=== PATIENT | female | born 1950 | race Caucasian/White ===

== ENCOUNTER 2019-02-24 20:49 | Emergency (ER) | payer OTHER, MEDICARE ==
[2019-02-24] MEDS ORDERED: HYDROCODONE/ACETAMINOPHEN 5-325 MG TABLET PO ONE (22:19)
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
[2019-02-24 23:29] VITALS: BP 174/76
[2019-02-24 23:37] LABS: ABSOLUTE BASOPHILS # (AUTO) 0.1 10^3/uL (0.0-0.2); ABSOLUTE EOSINOPHILS # (AUTO) 0.1 10^3/uL (0.0-0.6); ABSOLUTE LYMPHOCYTES (AUTO) 1.4 10^3/uL (0.5-4.7); ABSOLUTE MONOCYTES (AUTO) 1.1 10^3/uL (0.1-1.4); ABSOLUTE NEUT (AUTO) 10.3 10^3/uL (1.7-8.2); BASOPHILS % (AUTO) 0.7 % (0-2); EOSINOPHILS % (AUTO) 0.5 % (0-6); HEMATOCRIT 41.3 % (36.0-47.0); LYMPHOCYTES % (AUTO) 10.9 % (13-45); MEAN CORPUSCULAR HEMOGLOBIN 31.4 pg (27.0-33.4); MEAN CORPUSCULAR HGB CONC 33.9 g/dL (32.0-36.0); MEAN CORPUSCULAR VOLUME 93 fl (80-97); MONOCYTES % (AUTO) 8.5 % (3-13); PLATELET COUNT 198 10^3/uL (150-450); RED BLOOD COUNT 4.46 10^6/uL (3.72-5.28); RED CELL DISTRIBUTION WIDTH 14.7 % (11.5-14.0); SEGMENTED NEUTROPHILS % (AUTO) 79.4 % (42-78); TOTAL CELLS COUNTED % (AUTO) 100 %
--- NOTE | 2019-02-24 23:40 | EKG REPORT ---
SEVERITY:- ABNORMAL ECG - SINUS RHYTHM LEFT ATRIAL ABNORMALITY RBBB AND LPFB : Confirmed by: Yaron Alaniz MD 24-Feb-2019 23:39:35
[2019-02-24 23:51] LABS: ALBUMIN 4.4 g/dL (3.5-5.0); ALKALINE PHOSPHATASE 90 U/L (38-126); ANION GAP 11 (5-19); ASPARTATE AMINO TRANSFERASE 38 U/L (14-36); BILIRUBIN,DIRECT 0.3 mg/dL (0.0-0.4); BILIRUBIN,TOTAL 0.7 mg/dL (0.2-1.3); BLOOD UREA NITROGEN 14 mg/dL (7-20); CALCIUM 9.9 mg/dL (8.4-10.2); CARBON DIOXIDE 24 mmol/L (22-30); CHLORIDE 108 mmol/L (98-107); GLUCOSE 127 mg/dL (75-110); POTASSIUM 3.4 mmol/L (3.6-5.0); TOTAL PROTEIN 7.2 g/dL (6.3-8.2)
[2019-02-25] MEDS ORDERED: LIDOCAINE 5% (700 MG) TRANSDERMAL ADH..PATCH TP ONE (01:50)
[2019-02-25] MEDS ORDERED: OXYCODONE HCL IR 5 MG TABLET PO ONE (01:50)
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
[2019-02-25] MEDS ORDERED: DIPH/PERTUSS(ACELL)/TETANUS VAC/PF 0.5 ML SYR (>=10YO) IM ONE (02:02)
[2019-02-25] MEDS ORDERED: HYDROCODONE/ACETAMINOPHEN 5-325 MG (6 TAB/ER DISP) PO PRN (02:29)
== END 2019-02-25 02:35 | disposition home or self-care (01) ==
LOC: ER 20:49
DX: S52.122A Displaced fracture of head of left radius, initial encounter for closed fracture (principal); S62.115A Nondisplaced fracture of triquetrum [cuneiform] bone, left wrist, initial encounter for closed fracture; S20.219A Contusion of unspecified front wall of thorax, initial encounter; S40.012A Contusion of left shoulder, initial encounter; S10.93XA Contusion of unspecified part of neck, initial encounter; S80.212A Abrasion, left knee, initial encounter; M25.462 Effusion, left knee; M54.2 Cervicalgia; M25.552 Pain in left hip; M79.602 Pain in left arm; V59.40XA Driver of pick-up truck or van injured in collision with unspecified motor vehicles in traffic accident, initial encounter; I45.2 Bifascicular block; I10 Essential (primary) hypertension; Z87.891 Personal history of nicotine dependence; Z88.0 Allergy status to penicillin
CPT/HCPCS: 36415; 71046; 72070; 72125; 80053; 84484; 85025; 90471; 90715; 93005; 93010; 99284

== ENCOUNTER → 2020-01-27 | Outpatient (CLI) | payer MEDICARE, OTHER ==
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
--- OUTSIDE RECORDS SUMMARY | 2020-01-28 15:14 | XMS REPORT ---
:1950 [facility] [address] [place] [address] Care Team Providers Name Role Phone MD Presley Hu Attending Clinician Unavailable MD Presley Hu Attending Clinician Unavailable MD Samira Mcnamara Attending Clinician Unavailable MD Samira Mcnamara Attending Clinician Unavailable Allergies, Adverse Reactions, Alerts Allergy Name Allergy Status Severity Reaction(s) Onset Inactive Treat ing Comments Type Date Date Clinician penicillin Drug Active Moderate Eruption allergy (morphologic abnormality) Medications Ordered Filled Start Stop Current Ordering Indication Dosage Frequency Signature Comments Components Medication Medication Date Date Medication? Clinician (SIG) Name Name gabapentin 2019-0 Yes 300mg 300 mg = 1 300 mg oral 8-18 cap(s), capsule 09:47: PO, qAM 00 levothyroxi 2019-0 Yes 100ug 100 mcg = ne 100 mcg 611 1 tab(s), (0.1 mg) 09:26: PO, Daily, oral tablet 00 # 90 tab(s), 0 Refill(s) Oyster 2020-0 Yes 11 1 tab(s), Shell 6-11 PO, BID, # Calcium 09:24: 120 with 00 tab(s), 0 Vitamin D Refill(s) 500 mg-200 intl units (5 mcg) oral tablet rosuvastati 2019-0 Yes 40mg 40 mg = 1 n 40 mg 6-11 tab(s), oral tablet 09:24: PO, Daily, 00 # 90 tab(s), 0 Refill(s) Cardizem CD 2020-0 Yes 120mg 120 mg = 1 120 mg/24 6-11 cap(s), hours oral 09:23: PO, Daily, capsule, 00 # 90 extended cap(s), 0 release Refill(s) pantoprazol 2020-0 Yes 80mg 80 mg = 2 e 40 mg 6-11 tab(s), oral 09:23: PO, BID, # delayed 00 120 release tab(s), 0 tablet Refill(s) telmisartan 2020-0 Yes 80mg 80 mg = 1 80 mg oral 6-11 tab(s), tablet 09:22: PO, Daily, 00 # 90 tab(s), 0 Refill(s) loratadine 2019-0 Yes 10mg 10 mg = 1 10 mg oral 6-11 tab(s), tablet 09:22: PO, Daily, 00 # 90 tab(s), 0 Refill(s) amLODIPine 2020-0 Yes 2.5mg 2.5 mg = 1 2.5 mg oral 6-11 tab(s), tablet 09:22: PO, Daily, 00 # 90 tab(s), 0 Refill(s) Problems This patient has no known problems. Procedures Procedure Date / Time Performed Performing Clinician Cj evans Anterior Cervical Discectomy and 2019-11-02 13:38:00 Fusion Level 2 IPO (NA)1 Computed tomography myelogram of 2019-08-26 00:00:00 cervical region APPENDECTOMY Bilateral carpal tunnel syndrome Bilateral guillotine tonsillectomy Breast lumpectomy Stapedectomy2 Results This patient has no known results. Assessments Condition Name Status Diagnosis Date Treating Clinici an Cervicalgia Active 0 Encounter for screening for other viral Active 0 diseases Low back pain Active 0 Radiculopathy, cervical region Active 0 Encounters Start End Encounter Admission Attending Care Care Encounter Date/Time Date/Time Type Type Clinicians Facility Department ID 2019-11-02 2019-11-02 Aaron Gentile [facility] [id number] 09:09:17 09:09:17 Aaron Hu 2019-10-29 2019-10-29 O Aaron Jaime [facility] [id number] 09:15:00 23:59:59 Aaron Hu 2019-10-20 2019-10-21 O Aarno Jaime [facility] [id number] 13:07:39 23:59:59 Aaron Hu 2019-08-26 2019-08-26 O Aaron Bowser [facility] [id number] 08:51:53 13:17:00 Aaron Mcnamara Payers Payer Name Policy Type Policy Number Effective Date Expiration D ate Social History Smoking Status Start Date Stop Date Heavy tobacco smoker (finding) 2019-11-02 11:48:08 2019-10-16 8 11:48:08 Social History Observation Description Sex Female Vital Signs Vital Name Observation Time Observation Value Comments Temperature Oral 2019-11-03 08:00:00 36.8 Mayela Peripheral Pulse Rate 2019-11-03 08:00:00 62 /min Respiratory Rate 2019-11-03 08:00:00 16 /min Systolic Blood Pressure 2019-11-03 08:00:00 152 mm[Hg] Diastolic Blood Pressure 2019-11-03 08:00:00 76 mm[Hg] Temperature Oral 2019-11-03 03:00:00 36.4 Mayela Peripheral Pulse Rate 2019-11-03 03:00:00 61 /min Respiratory Rate 2019-11-03 03:00:00 16 /min Systolic Blood Pressure 2019-11-03 03:00:00 155 mm[Hg] Diastolic Blood Pressure 2019-11-03 03:00:00 66 mm[Hg] Temperature Oral 2019-11-02 23:00:00 36.5 Mayela Peripheral Pulse Rate 2019-11-02 23:00:00 57 /min Respiratory Rate 2019-11-02 23:00:00 15 /min Systolic Blood Pressure 2019-11-02 23:00:00 124 mm[Hg] Diastolic Blood Pressure 2019-11-02 23:00:00 58 mm[Hg] Heart Rate Monitored 2019-11-02 17:15:00 55 /min Heart Rate Monitored 2019-11-02 17:00:00 51 /min Heart Rate Monitored 2019-11-02 16:45:00 59 /min Temperature Tympanic 2019-11-02 14:50:00 36 Mayela Temperature - Temporal Artery 2019-11-02 11:39:00 36.8 Mayela Apical Heart Rate 2019-11-02 11:39:00 53 /min Hospital Discharge Instructions Patient Nuhoqgnkj36/18/2020 15:29:49Anterior Cervical Diskectomy and FusionAnterior Cervical Diskectomy and FusionAnterior cervical diskectomy and fusion is a surgery to remove and replace an intervertebral disk. Intervertebral disks are plates of cartilage located between the bones of the spine. This surgery is done when an intervertebral disk in the neck puts pressure on the spine or on a nerve.Thesurgery is done through the front (anterior) part of the neck. During the surgery, the damaged disk is removed and replaced with a plastic implant, a bone from another part of the body (bone graft), orboth. Sometimes metal plates and screws (hardware) are also put in the neck to help keep the implantor bone graft in place and to allow the bones to grow together (fuse).Tell a health care provider about: Any allergies you have. All medicines you are taking, including vitamins, herbs, eye drops, creams, and uqug-fwr-ihwionh medicines. Any problems you or family members have had with anesthetic medicines. Any blood disorders you have. Any surgeries you have had. Any medical conditions you have or have had. Whether you are or may be .What are the risks?Generally, this is a safe procedure. However, problems may occur, including: Infection. Bleeding, which can sometimes require a blood transfusion. Injury to surrounding structures, including nerves. Leakage of fluid from the brain or spinal cord (cerebrospinal fluid). Blood clots. Temporary breathing difficulties.What happens before the procedure?MedicinesAsk your health care provider about: Changing or stopping your regular medicines. This is especially important if you are taking diabetes medicines or blood thinners. Taking medicines such as aspirin and ibuprofen. These medicines can thin your blood. Do not take these medicines unless your health care provider tells you to take them. Taking bfjj-cde-bdwvjvi medicines, vitamins, herbs, and supplements.Staying hydratedFollow instructions from your health care provider about hydration, which may include: Up to 2 hours before the procedure you may continue to drink clear liquids, such as water, clear fruit juice, black coffee, and plain tea.Eating and drinkingFollow instructions from your health care provider about eatingand drinking, which may include: 8 hours before the procedure stop eating heavy meals or foods, such as meat, fried foods, or fatty foods. 6 hours before the procedure stop eating light meals or foods, such as toast or cereal. 6 hours before the procedure stop drinking milk or drinks that contain milk. 2 hours before the procedure stop drinking clear liquids.General instructions Do not use any products that contain nicotine or tobacco for at least 4 weeks before the procedure. These products include cigarettes, e-cigarettes, and chewing tobacco. If you need help quitting, ask your health care provider. Ask your health care provider: How your surgery site will be marked. What steps will be taken to help prevent infection. These may include: Removing hair at the surgery site. Washing skin with a germ-killing soap. Receiving antibiotic medicine.What happens during the procedure? An IV will be inserted into one of your veins. You will be given one or more of the following: A medicine to help you relax (sedative). A medicine to make you fall asleep (general anesthetic). A breathing tube will be placed. Your neck will be cleaned with a germ-killing solution (antiseptic solution). Your surgeon will make an incision in the front of your neck. Your neck muscles will be spread apart. The damaged disk and any damaged bone willbe removed. The area where the disk was removed will be filled with a small plastic implant, a bone graft, or both. Hardware may be put in your neck. The incision will be closed with stitches ( sutures). Adhesive strips or skin glue may be placed across the incision. A bandage (dressing)will be applied over the incision.The procedure may vary among health care providers and hospitals.What happens after the procedure? Your blood pressure, heart rate, breathing rate, and blood oxygenlevel will be monitored until you leave the hospital or clinic. You will be monitored for any signs of complications from the procedure, such as: Too much bleeding from the incision site. A buildup of blood under your skin at the surgical site. Difficulty breathing. You may continue to receive antibiotics. You can start to eat as soon as you feel comfortable. You may be given a neck brace to wear. This brace limits your neck movement while your bones are fusing. Do not drive for 24 hours if you were given a sedative during your procedure.Summary Anterior cervical diskectomy and fusion is a surgery to remove and replace an intervertebral disk. The surgery is done through the front (anterior) part of the neck. Before the procedure, follow instructions from your health care provider about changing or stopping your medicines and about eating and drinking. During the procedure, the damaged disk and any damaged bone will be removed. After the procedure, you will bemonitored for any signs of complications from the procedure. You may be given a neck brace to wear. This brace limits your neck movement while your bones are fusing.This information is not intended to replace advice given to you by your health care provider. Make sure you discuss any questions you have with your health care provider.Document Released: 02/19/2010 Document Revised: 11/26/2018 Document Reviewed: 11/26/2018Lottie Interactive Patient Education ? 2019 [employer].11/02/2019 15:29:49Cervical FusionCervical FusionCervical fusion is a procedure that is done on bones in the neck (cervical spine) to relieve pressure on the spinal cord or one or more nerve roots.There are two types of cervical fusion: Posterior cervical fusion. This surgery is done through the back (posterior) of the neck. The goal of this procedure is to make two or more of the bones in the spinal column (vertebrae) grow together (fuse). This procedure is most commonly used to treat neck fractures and dislocations and to fix deformities in the curve of the neck. Anterior cervical fusion. This surgery is done through the front (anterior) part of the neck. This procedure is most commonly used to treat herniated cervical disk, degenerative cervical disease, and arthritis in the cervical spine. During this typeof surgery: The affected disk between the two vertebrae (intervertebral disk) is removed, as wellas any extra bone on the edges of the vertebrae (bone spurs). This takes pressure off of the nerves or spinal cord (decompression). The area where the disk was removed is filled with a bone material(graft) or artificial bone material (implant) and then it fuses over time.In either procedure, hardware such as rods, screws, metal plates, or cages may be inserted to stabilize the vertebrae while they heal.Tell a health care provider about: Any allergies you have. All medicines you are taking,including vitamins, herbs, eye drops, creams, and kjza-gkk-luomddi medicines. Any problems you orfamily members have had with anesthetic medicines. Any blood disorders you have. Any surgeriesyou have had. Any medical conditions you have. Whether you are or may be .What are the risks?Generally, this is a safe procedure. However, problems may occur, including: Infection. Bleeding. Allergic reactions to medicines or dyes. Damage to other structures or organs, such as nerves near the spine. Spinal fluid leakage. Blood clots. Trouble controlling urination or bowel movements. Vertebrae not fusing together completely (pseudoarthrosis). Temporary hoarseness of the voice. Difficulty swallowing.What happens before the procedure?Staying hydratedFollow instructions from your health care provider about hydration, which may include: Up to 2 hours before the procedure you may continue to drink clear liquids, such as water, clear fruit juice, black coffee, and plain tea.Eating and drinking restrictionsFollow instructions from your health care provider about eating and drinking, which may include: 8 hours before the procedure stop eating heavy meals or foods such as meat, fried foods, or fatty foods. 6 hours before the procedure stop eating light meals or foods, such as toast or cereal. 6 hours before the procedure stop drinking milk or drinks that contain milk. 2 hours before the procedure stop drinking clear liquids.Medicines Ask your health care provider about: Changing or stopping your regular medicines. This is especially important if you are taking diabetes medicines or blood thinners. Takingmedicines such as aspirin and ibuprofen. These medicines can thin your blood. Do not take these medicines before your procedure if your health care provider instructs you not to. You may be given antibiotic medicine to help prevent infection.General instructions Ask your health care provider howyour surgical site will be marked or identified. You will have blood and urine samples taken. You may have tests, such as: X-rays. CT scan. MRI. Plan to have someone take you home from the hospital or clinic. If you will be going home right after the procedure, plan to have someone with you for 24 hours.What happens during the procedure? To reduce your risk of infection: Your health care team will wash or sanitize their hands. Your skin will be washed with soap. Hairmay be removed from the surgical area. An IV tube will be inserted into one of your veins. Youwill be given one or more of the following: A medicine to help you relax (sedative). A medicine to make you fall asleep (general anesthetic). If you are having a posterior cervical fusion: An incision will be made in the back of your neck. Two or more vertebrae will be joined into one solid section of bone with a bone graft. If you are having an anterior cervical fusion: An incision will be made in the area where the fusion will be placed. This is?usually done at the front of your neck. Your neck muscles will be pushed aside. The affected disk and bone spurs will be removed (decompression). The area where the disk was removed will then be filled with bone graft or bone implants or both. Screws and rods or metal plates may be used to stabilize the vertebrae while they fuse. Your incision may be closed. A bandage (dressing) may be placed over your incision.The procedure may vary among health care providers and hospitals.What happens after the procedure? You will be given medicine to relieve pain as needed. You will continue to receive fluids and medicines through an IV tube. Your blood pressure, heart rate, breathing rate, and blood oxygen level will be monitored until the medicines you were given have worn off. You may be given a brace to wear while you heal. Do not drive until your health care provider approves. You may have to wear compression stockings. These stockings help to prevent blood clots and reduce swelling in your legs. You may be asked to do breathing exercises. This helps prevent a lung infection. You will be encouraged to stand up and walk as soon as you are able. You will be taught how to move correctly and how to stand and walk. You will be assisted to turn in bed frequently by moving your whole body without twisting your back (log rolling technique).This information is not intended to replace advice given to you by your health care provider. Make sure you discuss any questions you have with your healthcare provider.Document Released: 08/23/2002 Document Revised: 09/25/2016 Document Reviewed: 09/11/2016[employer]ier Interactive Patient Education ? 2019 [employer].11/02/2019 15:29:49Venous Thromboembolism PreventionVenous Thromboembolism PreventionVenous thromboembolism (VTE) is a condition in which a blood clot (thrombus) develops in the body. A thrombus usually occurs in a deep vein in the leg or thepelvis (DVT), but it can also occur in the arm. Sometimes, pieces of a thrombus can break off from its original place of development and travel through the bloodstream to other parts of the body. When that happens, the thrombus is called an embolus. An embolus that travels to one or both lungs is called a pulmonary embolism. An embolism can block the blood flow in the blood vessels of other organs aswell.VTE is a serious health condition that can cause disability or . It is very important to get help right away and to not ignore symptoms.How can a VTE be prevented? Exercise regularly. Takea brisk 30 minute walk every day. Staying active and moving around can help you to prevent blood clots. Avoid sitting or lying in bed for long periods of time without moving your legs. Change your position often, especially during long-distance travel (over 4 hours). If you are a woman who is over 35 years of age, avoid unnecessary use of medicines that contain estrogen. These include control pills and hormone replacement therapy. Do not smoke, especially if you take estrogen medicines. If you need help quitting, ask your health care provider. Eat plenty of fruits and vegetables. Ask your health care provider or dietitian if there are foods that you should avoid. Maintain a weight that is appropriate for your height. Ask your health care provider what weight is healthy for you. Wear loose-fitting clothing. Avoid constrictive or tight clothing around your legs or waist.Try not to bump or injure your legs. Avoid crossing your legs when you are sitting. Do not use pillows under your knees while lying down unless told by your health care provider. Wear support hose (compression stockings or MORGAN hose) as told by your health care provider. Compression stockings increase blood flow in your legs and can help prevent blood clots. Do not let them bunch up when you arewearing them.How can I prevent VTE when I travel?Long-distance travel (over 4 hours) can increase the risk of a VTE. To prevent VTE when traveling: Exercise your legs every hour by standing, stretching, and bending and straightening your legs. If you are traveling by airplane, train, or bus, walk up and down the aisle as often as possible to get your blood moving. If you are traveling by car, stopand get out of the car every hour to exercise your legs and stretch. Other types of exercise might include: Keeping your feet flat on the ground and raising your toes. Switching from tightening the muscles in your calves and thighs to relaxing those same muscles while you are sitting. Pointing and flexing your feet at the ankle joints while you are sitting. Stay well hydrated while traveling. Drink enough water to keep your urine clear or pale yellow. Avoid drinking alcohol during long travel.Generally, it is not recommended that you take medicines to prevent DVT during routine travel.How can VTE be prevented if I am hospitalized?A VTE may be prevented by taking medicines that are prescribed to prevent blood clots (anticoagulants). You can also help to prevent VTE while in the hospital by taking these actions: Get out of bed and walk. Ask your health care provider if this is safe for you to do. Request the use of a sequential compression device (SCD). This is a machine thatpumps air into compression sleeves that are wrapped around your legs. Request the use of compression stockings, which are tight, elastic stockings that apply pressure to the lower legs. Compression s tockings are sometimes used with SCDs.How can I prevent VTE after surgery?Understand that there is an increased risk for VTE for the first 46 weeks after surgery. During this time: Avoid long-distance travel (over 4 hours). If you must travel during this time, ask your health care provider about additional preventive actions that you can take. These might include exercising your arms and legs every hour while you travel. Avoid sitting or lying still for too long. If possible, get up and walk around one time every hour. Ask your health care provider when this is safe for you to do.Get help right away if: You have new or increased pain, swelling, or redness in an arm or leg. You have numbness or tingling in an arm or leg. You have shortness of breath while active or at rest. You have chest pain. You have a rapid or irregular heartbeat. You feel light-headed or dizzy. You cough up blood. You notice blood in your vomit, bowel movement, or urine.These symptoms may represent a serious problem that is an emergency. Do not wait to see if the symptoms will go away. Get medical help right away. Call your local emergency services (911 in the [place] Do not drive yourself to the hospital.This information is not intended to replace advice given to you by your health care provider. Make sure you discuss any questions you have with your health care provider.Document Released: 02/19/2010 Document Revised: 10/17/2017 Document Reviewed: 06/28/2015Lottie Interactive Patient Education ? 2019 [employer].11/02/2019 15:29:49Preventing Surgical Site Infections ([place]) (Latanya [place])PREVENTING SURGICAL SITE INFECTIONSWhat can you do?Hand HygieneWashing your hands or using an alcohol gel is the number one way to prevent infection.Always wash your hands or use an alcohol hand rub before you touch the surgical site. Make sure anyone else does the same before touching the surgi blair site.Caring for your surgical siteCare of your surgical site continues after you go home. Thereare some simple things that you can do to help prevent infection at your surgical site. Anyone who touches the surgical site, including yourself and healthcare providers, should wash hands, or use an alcohol hand rub, before and after touching the surgical site Cleanse the wound according to your doctors instructions. Do not remove the dressing unless your doctor has instructed you to do so. Avoid tub baths, soaking in water, or swimming until your surgeon tells you it is OK. Do not allow your pet to sit or lie on the surgical site. Make sure you are eating nutritiously. Stop tobacco use. Place clean linen where you will be sleeping. Keep the wound clean and dry.Report any redness or drainage to your surgeon immediately.ZbzgwtvuQzlz73/18/2020 15:29:49Preventing Constipation After SurgeryPreventing Constipation After SurgeryConstipation is a common problem after surgery. Many things can make constipation more likely after a surgery, including: Certain medicines,especially numbing medicines (anesthetics) and very strong pain medicines called opioids. Feelingstressed because of the surgery. Eating different foods than normal. Being less active.Symptoms of constipation include: Having fewer than three bowel movements a week. Straining to have a bowel movement. Having hard, dry, or zkrksc-rvqk-dbibii stools. Feeling full or bloated. Having pain in the lower abdomen. Not feeling relief after having a bowel movement.You can take stepsto help prevent constipation after surgery.Follow these instructions at home:Eating and drinking Eat foods that have a lot of fiber in them. These include fresh fruits and vegetables, whole grains, and beans. Limit foods that are high in fat and processed sugars, such as fried and sweet foods. These include cypriot fries, hamburgers, cookies, and candy. Take a fiber supplement as told by yourhealth care provider. If you are not taking a fiber supplement and you think you are not getting enough fiber from foods, talk to your health care provider about adding a fiber supplement to your diet. Drink enough fluid to keep your urine pale yellow. Drink clear fluids, especially water. Avoiddrinking alcohol, caffeine, and soda. These can make constipation worse.Activity After surgery, return to your normal activities slowly, or when your health care provider says it is okay. Start walking as soon as you can. Try to go a little farther each day. Once your health care provider appr oves, do some sort of regular exercise. This helps prevent constipation.Bowel movements Go to therestroom when you have the urge to go. Do not hold it in. Try drinking something hot to get a bowel movement started. Keep track of how often you use the restroom.Medicine Take xqya-otw-icuyftr and prescription medicines only as told by your health care provider. Talk to your health care provider about medicines that may help prevent constipation, particularly if you have a history of constipation. Your health care provider may suggest a stool softener, laxative, or fiber supplement. Do not take any medicines without talking to your health care provider first.Contact a health care provider if: You used stool softeners or laxatives and still have not had a bowel movement within 2448 hours after using them. You have not had a bowel movement in 3 days. You have a fever.Gethelp right away if: Your constipation lasts for more than 4 days or gets worse. You have bright red blood in your stool. You have pain in the abdomen or rectum. You have very bad cramping. You have thin, pencil-like stools. You have unexplained weight loss.Summary Constipation is a common problem after surgery. Many things can make constipation more likely after a surgery, including certain medicines, eating different foods than normal, and being less active. Symptoms of constipation include having fewer than three bowel movements a week, straining to have a bowel movement, pain in the lower abdomen, and feeling full or bloated. A diet rich in high-fiber foods, fluids, physical activity, and medicines, such as stool softeners and laxatives, can help prevent constipation. This information is not intended to replace advice given to you by your health care provider. Make sure you discuss any questions you have with your health care provider.Document Released: 06/28/2013 Document Revised: 06/02/2017 Document Reviewed: 06/02/2017[employer] Interactive Patient Education ? 2019 [employer].11/02/2019 15:29:49Post-Operavtive Discharge Instructions ([place]) (CUSTOM)Post-Operative Discharge InstructionsWHAT TO EXPECT AFTER ANESTHESIAAfter the procedure, it is typical to experience: Nausea and vomiting. Sore throat. Sleepiness. Dizziness. Weakness. Painat the IV site. Trouble concentrating.HOME CARE INSTRUCTIONSFor the first 24 hours after anesthesia: Have a responsible person with you. Do not care for small children independently. Do not drivea car. Do not operate hazardous machinery. Do not drink alcohol. Do not take medicine that has not been prescribed by your health care provider. Do not sign important papers or make important decisions.EATING AND DRINKING Follow any instructions from your health care provider about eating or drinking restrictions. When you feel hungry, start by eating small amounts of foods that aresoft and easy to digest (bland). Gradually return to your regular diet. Drink enough fluid to keep your urine a pale yellow. It is not recommended that you take pain medicine on an empty stomach. Nausea and vomiting are common after receiving anesthesia. If you vomit, rehydrate by drinking water, juice or clear broth.SEEK MEDICAL CARE IF: You have nausea and vomiting that continue for more than one day after anesthesia. You develop a rash. You have redness around your IV site that gets worse. You have a temperature greater that 101 degrees orally or 102 degrees rectally.SEEK IMMEDIATE MEDICAL CARE IF: You have difficulty breathing. You have chest pain. You are unable to pass urine. You have blood in your urine or stool, or you vomit blood. You have any allergic reactions.BLEEDING RISK AFTER SURGERYIt is normal to have some bleeding after surgery, but if you notice bleeding coming through your bandages: Have someone hold firm pressure on the surgical site and reinforce it with additional dressing. If you are bleeding from an extremity, elevate the extremity above the level of your heart.WHEN SHOULD YOU CALL FOR HELP? If your incision is still bleeding after 15 minutes, call your surgeon immediately. If your dressing is fully saturated in under an hour, or you are unable to stop the bleeding with firm pressure, call your surgeon immediately. If you cant get in touch with your doctor, go to Urgent Care or to the [facility].Call 911 anytime you think you may need emergency care.Make sure you follow your doctors instructions regarding dressing changes, bathing and surgical incision site care. Make sure you discuss any questions you have with your health care provider.PREVENTING SURGICAL SITE INFECTIONSWHAT IS A SURGICAL SITE INFECTION?A surgical site infection is an infection that occurs after surgery in the part of the body where the surgery took place. Most patients who have surgery do not develop an infection. However, infections develop in about 1 to 3 out of every 100 patients who have surgery.Some of the common symptoms of a surgical site infection are: Redness and pain around the area where you had surgery Drainage of cloudy fluid from your surgical wound Fever Swelling Itching BurningWHAT CAN YOU DO TO HELP PREVENT A SURGICAL SITE INFECTION?Hand HygieneWashing your hands or using an alcohol gel is the number one way to prevent infection.Always wash your hands or use an alcohol hand rub before you touch the surgical site. Make sure anyone else does the same beforetouching the surgical site.Caring for your surgical siteCare of your surgical site continues after you go home. There are some simple things that you can do to help prevent infection at your surgical site. Anyone who touches the surgical site, including yourself and healthcare providers, should wash hands, or use an alcohol hand rub, before and after touching the surgical site Cleanse the wound according to your doctors instructions. Do not remove the dressing unless your doctor has instructed you to do so. Avoid tub baths, soaking in water, or swimming until your surgeon tells you it is OK. Do not allow your pet to sit or lie on the surgical site. Make sure you are eating nu tritiously. Stop tobacco use. Place clean linen where you will be sleeping. Keep the wound clean and dry.Report any signs of infection to your surgeon immediately.Pain Relief Preoperatively and PostoperativelyIf you have questions, problems, or concerns about the pain that you may feel after surgery, let your health care provider know.?Patients have the right to assessment and management of pain. Severe pain after surgeryand the fear or anxiety associated with that painmay cause extreme discomfort that: Prevents sleep. Decreases the ability to breathe deeply and to cough. This can result in pneumonia or other upper airway infections. Causes the heart to beat more quickly and the blood pressure to be higher. Increases the risk for constipation and bloating. Decreases the ability of wounds to heal. May result in depression, increased anxiety, and feelings of helplessness.Relieving pain before surgery (preoperatively) is also important because it lessens pain that you have after surgery (postoperatively). Patients who receive pain relief both before and after surgery experience greater pain relief than those who receive pain relief only after surgery. Let your health care provider know if you are having uncontrolled pain.?This is very important.?Pain after surgery is more difficult to manage if it is severe, so receiving prompt and adequate treatment of acute pain is necessary. If you become constipated after taking pain medicine, drink more liquids if you can. Your health care provider may have you take a mild laxative.PAIN CONTROL METHODSYour health care providers follow policies and procedures about the management of your pain.?These guidelines should be explained to you before surgery.?Plans for pain control after surgery must be decided upon by you andyour health care provider and put into use with your full understanding and agreement.?Do not be afraid to ask questions about the care that you are receiving.Your health care providers will attempt to control your pain in various ways, and these methods may be used together (multimodal analgesia). Using this approach has many benefits for you, including being able to eat and move around.As-Needed Pain Control You may be given pain medicine through an IV tube or as a pill or liquid that you can swallow. Let your health care provider know when you are having pain, and he or she will give you the pain medicine that is ordered for you.Medicine That Numbs the Area (Local Anesthetic)You may be givenpain medicine: As an injection near the area of the pain (local infiltration). As an injectionnear the nerve that controls the sensation to a specific part of your body (peripheral nerve block). In your spine to block pain (spinal block).Opioids Moderate to moderately severe acute pain after surgery may respond to opioids.?Opioids are narcotic pain medicine. Opioids are often combined with non-narcotic medicines to improve pain relief, lower the risk of side effects, and reduce the chance of addiction. If you follow your health care provider's directions about taking opioids and youdo not have a history of substance abuse, your risk of becoming addicted is very small.?To prevent addiction, opioids are given for short periods of time in careful doses.Other Methods of Pain Control Steroids. Physical therapy. Heat and cold therapy. Compression, such as wrapping an elastic bandage around the area of the pain. Massage.This information is not intended to replace advicegiven to you by your health care provider. Make sure you discuss any questions you have with your health care provider.[employer] Interactive Patient Education ?2016 [employer]11/02/2019 15:29:49Pain M edicine Instructions, Yzjf-qz-CjdcFsck Medicine InstructionsYou may need pain medicine after an injury or illness. Two common types of pain medicine are: Opioid pain medicine. These may be called opioids. Non-opioid pain medicine. This includes NSAIDs.It is important to follow your doctor's instructions when you are taking pain medicine. Doing this can keep yourself and others safe.How can painmedicine affect me?Pain medicine may not make all of your pain go away. It should make you comfortable enough to: Move. Breathe. Do normal activities.Opioids can cause side effects, such as: Trouble pooping (constipation). Feeling sick to your stomach (nausea). Throwing up (vomiting). Feeling very sleepy. Confusion. Taking the medicine for nonmedical reasons even though taking it hurts your health and well-being (opioid use disorder). Trouble breathing (respiratory depression).Taking opioids for longer than 3 days raises your risk of these side effects.Taking opioids for a long time can affect how well you can do daily tasks. Taking them for a long time also puts you at risk for: Car crashes. Depression. Suicide. Heart attack. Taking too much of the medicine (overdose). This can lead to .What should I do to stay safe while taking pain medicine?Take your medicine as told Take pain medicine exactly as told by your doctor. Take it only when you need it. Write down the times when you take your pain medicine. Look at the times before you take your next dose. Take other txdh-zcs-dhonxmz or prescription medicines only as told by your doctor. If your pain medicine has acetaminophen in it, do not take any other acetaminophen while you aretaking this medicine. Too much can damage the liver. Get pain medicine prescriptions from only one doctor.Avoid certain activitiesWhile you are taking prescription pain medicine, and for 8 hours after your last dose: Do not drive. Do not use machinery. Do not use power tools. Do not sign legal documents. Do not drink alcohol. Do not take sleeping pills. Do not take care of children by yourself. Do not do any activities that involve climbing or being in high places. Do not go into any body of water unless there is an adult nearby who can watch you and help you if needed. This includes: Lakes. [place]. Oceans. Spas. Swimming pools.Keep others safe Storeyour medicine as told by your doctor. Keep it where children and pets cannot reach it. Do not share your pain medicine with anyone. Do not save any leftover pills. If you have leftover pills, youcan: Bring them to a take-back program. Bring them to a pharmacy that has a drug disposal conta iner. Throw them in the trash. Check the medicine label or package insert to see if it is safe tothrow it out. If it is safe, take the medicine out of the container. Mix it with something that makes it unusable, such as pet waste. Then put the medicine in the trash.General instructions Talk with your doctor about other ways to manage your pain. If you have trouble pooping: Drink enough fluid to keep your pee (urine) pale yellow. Use a poop (stool) softener as told by your doctor. Eat more fruits and vegetables. Keep all follow-up visits as told by your doctor. This is important.Contact a doctor if: Your medicine is not helping with your pain. You have a rash. You feel depressed.Get help right away if:Seek medical care right away if you are taking pain medicines and you (or people close to you) notice any of the following: Trouble breathing. Breathing that is shorter than normal. Breathing that is more shallow than normal. Confusion. Sleepiness. Tr ouble staying awake. Feeling sick to your stomach. Throwing up. Your skin or lips turning pale or bluish in color. Tongue swelling.If you ever feel like you may hurt yourself or others, or have thoughts about taking your own life, get help right away. Go to your nearest emergency department or call: Your local emergency services (911 in the [place] A suicide crisis helpline, such as the National Suicide Prevention Lifeline at . This is open 24 hours a day.Summary Take your pain medicine exactly as told by your doctor. Pain medicine can help lower your pain. It may also cause side effects. Talk with your doctor about other ways to manage your pain. Follow your doctor's instructions about how to take your pain medicine and keep others safe. Ask what activities you should avoid while taking pain medicine.This information is not intended to replace advice given to you by your health care provider. Make sure you discuss any questions you have with your health care provider.Document Released: 08/19/2008 Document Revised: 10/13/2017 Document Reviewed: 10/13/2017[employer] Interactive Patient Education ? 2020 [employer].11/02/2019 15:29:49[place] Patient Safety: A Guide to Preventing Falls at Home (CUSTOM)[facility] Patient InformationPatie nt Safety: A Guide to Preventing Falls at HomeThe [facility] Patient InformationOriginalDate: 10/03/05 Revised date: 11/06/10Patient Safety: A Guide to Preventing Falls At Home Why is it important to prevent falls?Falls and the complications associated with falls are one of the most serioushealth problems facing the elderly. Preventing a fall is important to maintaining an active and independent lifestyle.Who is at risk for falls?Anyone can fall. No one wants to fall. Falls can occur in any age group; at any time and at any place. A fall can be a very serious and life threatening event for any person age 64 or older.Why do people fall?An unsafe environment may cause falls. An illness or physical condition may affect your strength and balance, making you more likely to fall. Some environmental factors that may cause falls are: Wet floors Loose carpets, tiles and throw rugs Equipment in halls or walkways Poor lighting Waxed floors Poor fitting or inadequate footwear Inappropriate use of assistive devices, canes, walkers, andwheelchairs Any other object at the floor level that a person can trip or slip onWhat illnesses or conditions make you unsteady on your feet or at risk for injury due to fall?Illness or conditions that may make you unsteady on your feet are: Poor vision/hearing Poor gait/mobility Muscle weakness Incontinence Syncope (dizziness) Low blood pressureLow blood sugar Seizures Poor nutrition/dehydration Medication reactions At risk for bleeding At risk for fractures Advanced age (>80)Standard [place] Order Number - [id number] [facility] Patient InformationOriginal Date: 10/03/05 Revised date: 11/06/10Patient Safety: A Guide to Preventing Falls At Home What should I tell my doctor? See your doctor as prescribed. See your eye doctor yearly. Tell your doctor if you have fallen and describe the circumstancesofthefall(s). Tell your doctor if you use any walker aids, such as a cane or awalker. Tell your doctor about any vision problems and any other medicalproblems you may have. Tell you doctor if you have any side effects from yourmedications. Take good care of your feet.Let your doctor know if you are taking laxatives.How can I make home safe? When getting out of bed, sit on the side of the bed before standingup. Place grab bars securely mounted in bathrooms around toilets,bath tubs, and shower areas. Place hand rails on both sides of stairwells. Make sure your home is well lit. Use night-lights in the bedroom, bathroom, hallways andstairways. Remove throw rugs, or fasten them to the floor carpet tape. Tack down carpet edges. Remove loose tiles. Remove electrical cords from pathways.Be sure to tell your doctor about all medications you are taking.Adapted from: Preventing Falls: Instructions for Patients and Families; [facility], August 2000 A Patient's Guide to Preventing Falls, The [place] Geriatrics SocietyStandard [place] Order Number - [id number]/ 15:29:49Incision Care, Adult, Rofu-gc-GzyjKvnpzsvv Care, AdultAn incision is a cut that a doctor makes in your skin for surgery (for a procedure). Most times, thesecuts are closed after surgery. Your cut from surgery may be closed with stitches (sutures), merritt,skin glue, or skin tape (adhesive strips). You may need to return to your doctor to have stitches orstaples taken out. This may happen many days or many weeks after your surgery. The cut needs to be well cared for so it does not get infected.How to care for your cutCut care Follow instructions from your doctor about how to take care of your cut. Make sure you: Wash your hands with soap and water before you change your bandage (dressing). If you cannot use soap and water, use hand dental equipment technician. Change your bandage as told by your doctor. Leave stitches, skin glue, or skin tape in place. They may need to stay in place for 2 weeks or longer. If tape strips get loose and curl up, you may trim the loose edges. Do not remove tape strips completely unless your doctor says it is okay. Check your cut area every day for signs of infection. Check for: More redness, swelling, or pain. More fluid or blood. Warmth. Pus or a bad smell. Ask your doctor how to clean the cut. This may include: Using mild soap and water. Using a clean towel to pat the cut dry after you clean it. Putting a cream or ointment on the cut. Do this only as told by your doctor. Covering the cut with a clean bandage. Ask your doctor when you can leave the cut uncovered. Do not take baths, swim, or use a hot tub until your doctor says it is okay. Ask your doctor if you can take showers. You may only be allowed to take sponge baths for bathing.Medicines If you were prescribed an antibiotic medicine, cream, or ointment, take the antibiotic or put it on the cut as told by your doctor. Donot stop taking or putting on the antibiotic even if your condition gets better. Take glhv-afe-boicjnf and prescription medicines only as told by your doctor.General instructions Limit movement around your cut. This helps healing. Avoid straining, lifting, or exercise for the first month, or for as long as told by your doctor. Follow instructions from your doctor about going back to your n ormal activities. Ask your doctor what activities are safe. Protect your cut from the sun whenyou are outside for the first 6 months, or for as long as told by your doctor. Put on sunscreen around the scar or cover up the scar. Keep all follow-up visits as told by your doctor. This is important.Contact a doctor if: Your have more redness, swelling, or pain around the cut. You have more fluid or blood coming from the cut. Your cut feels warm to the touch. You have pus or a bad smell coming from the cut. You have a fever or shaking chills. You feel sick to your stomach (nauseous) or you throw up (vomit). You are dizzy. Your stitches or merritt come undone.Get help ri ght away if: You have a red streak coming from your cut. Your cut bleeds through the bandage and the bleeding does not stop with gentle pressure. The edges of your cut open up and separate.You have very bad (severe) pain. You have a rash. You are confused. You pass out (faint). You have trouble breathing and you have a fast heartbeat.This information is not intended to replace advice given to you by your health care provider. Make sure you discuss any questions you have withyour health care provider.Document Released: 05/25/2012 Document Revised: 11/08/2016 Document Reviewed: 11/08/2016[employer] Interactive Patient Education ? 2019 [employer].11/02/2019 15:29:49How to Use Cold Therapy, Ezln-dm-TydhNmm to Use Cold TherapyCold therapy, or cryotherapy, is a treatment that uses cold temperatures to treat an injury or medical condition. It includes using cold packs or ice packs to reduce pain and swelling. Only use cold therapy if your doctor says it is okay.What are the ri sks?Generally, cold therapy is a safe treatment. However, it is not safe for: People who are not able to say they are in pain. These include small children and people who have memory problems. People who have certain conditions, such as: A problem in the vessels that slows blood flow to the fingers and toes (Raynaud's syndrome). Feeling very cold easily (cold hypersensitivity). Lack of feeling in the area being iced.Cold therapy may not be safe for people who have other conditions. Do not use it without talking to your doctor if you have: A heart condition. High blood pressure. Open or healing wounds. An infection. Pain and swelling in your joints (rheumatoid arthritis). Poor blood flow in the body. Diabetes. Certain skin conditions.How can I make a cold pack?When using a cold pack at home to reduce pain and swelling, you can use: A silica gel cold packthat has been left in the freezer. You can buy this online or in stores. A sealable plastic bag th at has been filled with crushed ice. A washcloth or paper towels soaked in cold (or ice) water. A plastic bag of frozen vegetables. Throw them away when you are finished using them as a cold pack.Supplies needed: A cold pack. A towel. This can be dry or damp, based on what you like.How to use cold therapy1. Have your cold pack ready.2. Place a towel between the cold pack and your skin. You may also wrap the cold pack in a towel.3. Put the cold pack on the affected area. Keep it on for nomore than 20 minutes at a time.4. Check your skin after 5 minutes to make sure that there is no damage to the area. Check for: White spots on your skin. Your skin may look blotchy or mottled. Skin that looks blue or pale. Skin that feels waxy or hard.5. Repeat these steps as many times each day as told by your doctor.Always use a towel to avoid direct contact with your skin.Contact a doctor if: You start to have white spots on your skin. This may give your skin a blotchy or mottled look. Your skin turns blue or pale. Your skin becomes waxy or hard. Your swelling gets worse.Summary Cold therapy, or cryotherapy, is used to treat an injury or other conditions. It includes using cold packs or ice packs to reduce pain and swelling. Cold therapy is not safe for people who arenot able to say they are in pain. When using cold packs or ice packs, always place a towel between the cold source and your skin. Check your skin after 5 minutes of icing it. This is to make surethat there is no skin damage. Contact your doctor if you notice changes in your skin or your swelling gets worse.This information is not intended to replace advice given to you by your health care provider. Make sure you discuss any questions you have with your health care provider.Document Released: 08/19/2008 Document Revised: 11/30/2018 Document Reviewed: 11/30/2018[employer] Interactive Patient Education ? 2019 [employer].11/02/2019 15:29:49Hand WashingHand WashingGerms such as bacteria, viruses, and parasites are found everywhere. They can be in the air and water, and they can be on surfaces like food, door handles, and your skin. Every day, your hands come into contact with germs. Many ofthese germs can make you and your family sick. Washing your hands is one of the easiest and most effective ways to lower your risk of getting and sharing germs.When should I wash my hands?You should wash your hands whenever you think they are dirty. You should also wash your hands: Before: Visiting a baby or anyone with a weakened disease-fighting system (immunesystem). Putting in or taking out contact lenses. After: Using the bathroom or helping someone else use the bathroom. Working or playing outside. Touching or taking out the garbage. Touching anything dirty around yourhome. Sneezing, coughing, or blowing your nose. Using a phone, including your mobile phone.Touching an animal, animal food, animal waste, or its toys or leash. Touching money. Using household precision lathe operator or toxic chemicals. Handling soiled clothes, bedding, or rags. Using public transportation. Going shopping, especially if you use a shopping cart or basket. Shaking hands.Handling livestock. Before and after: Preparing food. Eating. Visiting or taking care ofsomeone who is sick. This includes touching used tissues, toys, and clothes. Changing a bandage (d ressing) or taking care of an injury or wound. Giving or taking medicine. Preparing a bottle for a baby. Feeding a baby or young child. Changing a diaper.What is the correct way to wash my hands?1. Wet your hands with clean, running water. Turn off the water or move your hands out of the running water.2. Apply liquid soap or bar soap to your hands.3. Rub your hands together quickly to create lather.4. Keep rubbing your hands together for at least 20 seconds. Thoroughly scrub all parts ofyour hands, including under your fingernails and between your fingers.5. Rinse your hands with clean, running water until all the soap is gone.6. Dry your hands using an air dryer or a clean paper or cloth towel, or let your hands air-dry. Do not use your clothing or a soiled towel to dry your hands.If you are in a public restroom, use a paper towel: To turn off the water faucet. To open the bathroom door.How can I clean my hands if I do not have soap and water?If soap and clean water are not available, use an alcohol-based wipe, spray, or hand gel. Use a hand-sanitizing agent that contains at least 60% alcohol. If you are preparing food, hand sanitizers are not recommended as a replacement for hand washing with soap and water.To use a hand dental equipment technician, follow the directions on the product, and: Apply enough product to cover your hands. Make sure you wipe, rub, or spray the product so that it reaches every part of your hands and wrists. Include the backs of your hands, between your fingers, and under your fingernails. Rub the product onto your hands until it dries.Summary Germssuch as bacteria, viruses, and parasites are found everywhere. Your hands come into contact with germs every day. Many of these germs can make you and your family sick. Washing your hands is one of the easiest and most effective ways to lower your risk of getting and sharing germs.This information is not intended to replace advice given to you by your health care provider. Make sure you discussany questions you have with your health care provider.Document Released: 10/22/2005 Document Revised: 12/10/2017 Document Reviewed: 12/10/2017[employer] Interactive Patient Education ? 2019 [employer].11/02/2019 15:29:49Constipation, AdultConstipation, AdultConstipation is when a person has fewer bowel movements in a week than normal, has difficulty having a bowel movement, or has stools that are dry, hard, or larger than normal. Constipation may be caused by an underlying condition. It may become worse with age if a person takes certain medicines and does not take in enough fluids.Follow these instructions at home:Eating and drinking Eat foods that have a lot of fiber, such as fresh fruits andvegetables, whole grains, and beans. Limit foods that are high in fat, low in fiber, or overly processed, such as cypriot fries, hamburgers, cookies, candies, and soda. Drink enough fluid to keep your urine clear or pale yellow.General instructions Exercise regularly or as told by your health care provider. Go to the restroom when you have the urge to go. Do not hold it in. Take zave-buc-neykyuy and prescription medicines only as told by your health care provider. These include any fiber supplements. Practice pelvic floor retraining exercises, such as deep breathing while relaxing the lower abdomen and pelvic floor relaxation during bowel movements. Watch your condition for anychanges. Keep all follow-up visits as told by your health care provider. This is important.Contact a health care provider if: You have pain that gets worse. You have a fever. You do not have a bowel movement after 4 days. You vomit. You are not hungry. You lose weight. You are bleeding from the anus. You have thin, pencil-like stools.Get help right away if: You have a fever and your symptoms suddenly get worse. You leak stool or have blood in your stool. Your abdomen is bloated. You have severe pain in your abdomen. You feel dizzy or you faint.This information is not intended to replace advice given to you by your health care provider. Make sure you discuss any questions you have with your health care provider.Document Released: 11/29/2004 Document Revised: 09/20/2016 Document Reviewed: 08/21/2016[employer] Interactive Patient Education ? 2019 [employer].Follow Up Care09/03/2019 13:46:25With: Aaron HuAddress: [facility] [address] [facility], [place] [address]- Business (1)When: 11/11/2019 11:40:00
== END ==
LOC: RAD 09:43
PROVIDERS: ATTEND Family Medicine
DX: R07.9 Chest pain, unspecified (principal)
CPT/HCPCS: 78306; A9503; Q9969

== ENCOUNTER 2020-02-23 09:10 | Day surgery (SDC) | payer MEDICARE, OTHER ==
[~2020-02-23 09:10] MED LIST: CHONDR SU A NA/HYALUR INTRAOC KIT (SURGICARE) ONE; DORZOLAMIDE HCL 2%/TIMOLOL MALEAT 0.5% OPH SOLN 10 ML OS PRN; EPINEPHRINE INJ/PF 1 MG/1 ML AMPULE ONE; KETOROLAC TROMETHAMINE 0.45% 4 DROP/0.4 ML DROPERETTE OS PRN; LIDOCAINE 1%/PHENYLEPHRINE 1.5% 1 ML VIAL ONE; PREDNISOLONE ACETATE 1% OPH SUSP 5 ML OS PRN
[2020-02-23] MEDS ORDERED: ONDANSETRON HCL INJ/PF 4 MG/2 ML SDV ONE (09:16)
[2020-02-23] MEDS ORDERED: FENTANYL CITRATE INJ/PF 100 MCG/2 ML AMPUL ONE (09:16)
[2020-02-23] MEDS ORDERED: MIDAZOLAM 2 MG/2 ML INJ ONE (09:16)
[2020-02-23] MEDS: CYCLOPENTOLATE 0.2%/PHENYLEPHRINE 1% OPH SOLN 2 ML OS PRN ×3 (09:46→10:06)
[2020-02-23] MEDS: TROPICAMIDE 1% OPH SOLN 15 ML OS PRN ×3 (09:46→10:06)
[2020-02-23] MEDS: BESIFLOXACIN HCL 0.6% OPH SUSP 5 ML BOTTLE OS PRN ×3 (09:46→10:35)
[2020-02-23] MEDS: TETRACAINE HCL 0.5% OPH SOLN 4 ML OS PRN ×3 (09:47→10:17)
--- NOTE | 2020-02-23 13:30 | Operative Report ---
Operative Report-[facility] Operative Report: DATE OF SURGERY: February 23, 2020 PREOPERATIVE DIAGNOSIS: NUCLEAR CATARACT, LEFT EYE. POSTOPERATIVE DIAGNOSIS: NUCLEAR CATARACT, LEFT EYE. PROCEDURE PERFORMED: PHACOEMULSIFICATION WITH POSTERIOR CHAMBER INTRAOCULAR LENS IMPLANT, LEFT EYE. SURGEON: Juan Corley DO MEDICATIONS AND ANESTHESIA: Versed: IV Versed Tetracaine drops: 1 to 2 drops given as needed COMPLICATION: None INDICATIONS FOR SURGERY: Medical necessity: Best corrected visual acuity worse than 20/40 secondary to cataracts with impairment of ability to carry out needs or desired activities, blurred vision, visual distortion, reduced contrast sensitivity and/or glare with association functional impairment and supporting documentation/testing, and cataracts causing symptomatic impairment of visual functions not corrected with tolerable changes in glasses or contact lenses interfering with activities of daily life. PROCEDURE: Consent: The risks, benefits and alternatives of this procedures was discussed with the patient. The patient read and signed the consent forms, was identified and was seated in the exam chair. IOL: MX 60 E 21.0 IOL Diopters: Phacoemulsification with posterior chamber intraocular lens implant: The face was prepped with 5% povidone iodine solution, and a few drops of 5% povidone iodine solution was instilled into the inferior fornix. A non-fenestrated drape was placed over the eye and the lids were parted with the speculum. A paracentesis was made with a 15 degree blade, and 1% lidocaine MPF followed by viscoelastic was injected into the anterior chamber. A 2.4 mm metal micro- keratome was used to create a temporal clear corneal incision. A circular anterior capsulorrhexis was created, followed by hydro-dissection and hydro- delineation. The phacoemulsification hand piece was inserted and the nucleus was removed with the Phaco chop technique. The irrigation-aspiration hand piece was used to remove the residual cortex, and vacuum the posterior capsule. The capsular bag was inflated and viscoelastic and the above-mentioned IOL was injected into the eye with care to insert both leaning and trailing haptics in the capsular bag. The irrigation/aspiration hand piece was reinserted to remove residual viscoelastic from the capsular bag and anterior chamber. The corneal incision was hydrated, and anterior chamber was inflated with sterile BSS via the paracentesis site, and found to be watertight. Postop medication:1 drop of prednisolone into operative by followed by 1 drop of Cosopt into operative eye followed by 1 drop of Besivance intraoperative by Other:
== END 2020-02-23 11:11 ==
LOC: SC 09:10
PROVIDERS: ATTEND Ophthalmology
DX: H25.12 Age-related nuclear cataract, left eye (principal); K21.9 Gastro-esophageal reflux disease without esophagitis; I10 Essential (primary) hypertension; E78.00 Pure hypercholesterolemia, unspecified; E03.9 Hypothyroidism, unspecified
CPT/HCPCS: 66984; V2632; J2250; J3490 ×2; A9270; J0171; J3010; J2405

== ENCOUNTER 2020-03-08 11:35 | Day surgery (SDC) | payer MEDICARE, OTHER ==
[2020-03-08] MEDS: CYCLOPENTOLATE 0.2%/PHENYLEPHRINE 1% OPH SOLN 2 ML OD PRN ×3 (11:02→12:12)
[2020-03-08] MEDS: TROPICAMIDE 1% OPH SOLN 15 ML OD PRN ×3 (11:02→12:12)
[2020-03-08] MEDS: BESIFLOXACIN HCL 0.6% OPH SUSP 5 ML BOTTLE OD PRN ×4 (11:02→12:34)
[~2020-03-08 11:35] MED LIST changes: -DORZOLAMIDE HCL 2%/TIMOLOL MALEAT 0.5% OPH SOLN 10 ML OS PRN; +FENTANYL CITRATE INJ/PF 100 MCG/2 ML AMPUL ONE; +KETOROLAC TROMETHAMINE 0.45% 4 DROP/0.4 ML DROPERETTE OD PRN; -KETOROLAC TROMETHAMINE 0.45% 4 DROP/0.4 ML DROPERETTE OS PRN; +MIDAZOLAM 2 MG/2 ML INJ ONE; -PREDNISOLONE ACETATE 1% OPH SUSP 5 ML OS PRN
[2020-03-08] MEDS: TETRACAINE HCL 0.5% OPH SOLN 4 ML OD PRN ×3 (11:52→12:15)
[2020-03-08] MEDS: DORZOLAMIDE HCL 2%/TIMOLOL MALEAT 0.5% OPH SOLN 10 ML OD PRN ×2 (12:34)
[2020-03-08] MEDS: PREDNISOLONE ACETATE 1% OPH SUSP 5 ML OD PRN ×2 (12:34)
--- NOTE | 2020-03-08 12:50 | Operative Report ---
Operative Report-[facility] Operative Report: DATE OF SURGERY: March 08, 2020 PREOPERATIVE DIAGNOSIS: NUCLEAR CATARACT, RIGHT EYE. POSTOPERATIVE DIAGNOSIS: NUCLEAR CATARACT, RIGHT EYE. PROCEDURE PERFORMED: PHACOEMULSIFICATION WITH POSTERIOR CHAMBER INTRAOCULAR LENS IMPLANT, RIGHT EYE. SURGEON: Juan Corley DO MEDICATIONS AND ANESTHESIA: Versed: IV Versed Tetracaine drops: 1 to 2 drops given as needed COMPLICATION: None INDICATIONS FOR SURGERY: Medical necessity: Best corrected visual acuity worse than 20/40 secondary to cataracts with impairment of ability to carry out needs or desired activities, blurred vision, visual distortion, reduced contrast sensitivity and/or glare with association functional impairment and supporting documentation/testing, and cataracts causing symptomatic impairment of visual functions not corrected with tolerable changes in glasses or contact lenses interfering with activities of daily life. PROCEDURE: Consent: The risks, benefits and alternatives of this procedures was discussed with the patient. The patient read and signed the consent forms, was identified and was seated in the exam chair. IOL: MX 60 E 21.0 IOL Diopters: Phacoemulsification with posterior chamber intraocular lens implant: The face was prepped with 5% povidone iodine solution, and a few drops of 5% povidone iodine solution was instilled into the inferior fornix. A non-fenestrated drape was placed over the eye and the lids were parted with the speculum. A paracentesis was made with a 15 degree blade, and 1% lidocaine MPF followed by viscoelastic was injected into the anterior chamber. A 2.4 mm metal micro- keratome was used to create a temporal clear corneal incision. A circular anterior capsulorrhexis was created, followed by hydro-dissection and hydro- delineation. The phacoemulsification hand piece was inserted and the nucleus was removed with the Phaco chop technique. The irrigation-aspiration hand piece was used to remove the residual cortex, and vacuum the posterior capsule. The capsular bag was inflated and viscoelastic and the above-mentioned IOL was injected into the eye with care to insert both leaning and trailing haptics in the capsular bag. The irrigation/aspiration hand piece was reinserted to remove residual viscoelastic from the capsular bag and anterior chamber. The corneal incision was hydrated, and anterior chamber was inflated with sterile BSS via the paracentesis site, and found to be watertight. Postop medication: 1 drop of prednisolone into operative by followed by 1 drop of Cosopt into operative eye followed by 1 drop of Besivance intraoperative by other:
== END 2020-03-08 13:06 | disposition home or self-care (01) ==
LOC: SC 11:35
PROVIDERS: ATTEND Ophthalmology
DX: H25.11 Age-related nuclear cataract, right eye (principal); Z98.42 Cataract extraction status, left eye; I10 Essential (primary) hypertension; E78.00 Pure hypercholesterolemia, unspecified; E03.9 Hypothyroidism, unspecified; Z79.899 Other long term (current) drug therapy; F17.210 Nicotine dependence, cigarettes, uncomplicated
CPT/HCPCS: 66984; V2632; J2250; J3490 ×2; A9270; J0171; J3010